=== PATIENT | female | born 1955 | race Caucasian/White ===

== ENCOUNTER 2021-05-08 15:58 | Emergency (ER) | payer OTHER ==
[~2021-05-08 15:58] MED LIST: ANAPROX DS550 MG PO; [UNRECOGNIZED DRUG - REMARK]
[2021-05-08 16:22] LABS: BASO % 0.3 % (0.0-1.0); EOS % 0.3 % (1.0-4.0); HEMATOCRIT 38.2 % (37.0-47.0); LYMPH # 3.3 10*3/uL (1.3-4.4); LYMPH % 27.1 % (27.0-41.0); MEAN CELL VOLUME 88.2 fl (81.0-99.0); MEAN PLATELET VOLUME 9.7 fl (9.6-12.3); MONO # 0.7 10*3/uL (0.1-1.0); MONO % 5.3 % (3.0-9.0); NEUT # 8.2 10*3/uL (2.3-7.9); NEUT % 66.8 % (47.0-73.0); PLATELET COUNT AUTOMATED 221 10*3/uL (130-400); RED BLOOD COUNT 4.33 10*6/uL (4.10-5.10); RED CELL DISTRI WIDTH 12.9 % (0-14.5); WHITE BLOOD COUNT 12.3 10*3/uL (4.8-10.8)
[2021-05-08 16:37] LABS: ALBUMIN 4.1 gm/dl (3.1-4.5); CREATININE 1.18 mg/dL (0.55-1.02); POTASSIUM 3.8 mmol/L (3.5-5.1)
[2021-05-08 21:30] LABS: URINE AMPHETAMINES < 1000 (1000ng/ml); URINE BARBITURATES < 200 (200ng/ml); URINE BENZODIAZEPINES < 200 (200ng/ml); URINE CANNABINOIDS (THC) < 50 (50ng/ml); URINE COCAINE < 300 (300ng/ml); URINE METHADONE < 300 (300ng/ml); URINE OPIATES < 300 (300ng/ml)
[2021-05-08 21:36] LABS: URINE PHENCYCLIDINE < 25 (25ng/ml)
== END 2021-05-09 03:34 | disposition home or self-care (01) ==
LOC: ED 15:58
PROVIDERS: Family Medicine
DX: S01.01XA Laceration without foreign body of scalp, initial encounter (principal); F10.929 Alcohol use, unspecified with intoxication, unspecified; Z88.0 Allergy status to penicillin; W18.39XA Other fall on same level, initial encounter; Y93.89 Activity, other specified; Y92.89 Other specified places as the place of occurrence of the external cause; Y99.8 Other external cause status

== ENCOUNTER → 2024-06-21 | Outpatient (CLI) | payer MEDICARE ==
[~2024-06-21] MED LIST changes: +AMLODIPINE10 MG PO; +ASPIR-TRIN325 MG PO; +CLINDAMYCIN HC300 MG PO; +FINACEA50 G1 NAS; +FISH OIL 1,2001 EAC1 PO; +FLOVENT HFA12 GM INH; +HYDR25T PO; +IOHEXOL 300 MG/ML 100 ML VIAL IV ONE; +LISINOPRIL20 MG PO; +MOTRIN800 MG PO; +Motrin,Rufen800 MG PO; +OMEPRAZOLE MAGN20 MG PO; +PRAVASTATIN SOD20 MG PO; +VENTOLIN,PR2 MG/5 ML PO; +VITAMIN D22000 UNIT PO
[2024-06-21 13:43] LABS: BASO % 0.1 % (0.0-1.0); EOS % 0.1 % (1.0-4.0); HEMATOCRIT 30.7 % (37.0-47.0); MEAN CELL VOLUME 85.8 fl (81.0-99.0); MEAN CORPUSCULAR HGB 28.8 pg (27.0-31.0); MEAN CORPUSCULAR HGB CONC 33.6 g/dl (33.0-37.0); MEAN PLATELET VOLUME 9.4 fl (9.6-12.3); MONO # 0.7 10*3/uL (0.1-1.0); MONO % 8.9 % (3.0-9.0); NEUT # 6.4 10*3/uL (2.3-7.9); PLATELET COUNT AUTOMATED 246 10*3/uL (130-400); RED BLOOD COUNT 3.58 10*6/uL (4.10-5.10); RED CELL DISTRI WIDTH 13.9 % (0-14.5); WHITE BLOOD COUNT 8.4 10*3/uL (4.8-10.8)
[2024-06-21 14:06] LABS: POTASSIUM 3.6 mmol/L (3.4-5.1); TOTAL PROTEIN 7.8 gm/dL (6.0-8.0)
[2024-06-21 15:18] LABS: URINE CREATININE RANDOM 379.32 mg/dL
== END | disposition home or self-care (01) ==
LOC: LAB 01:11 → CT 01:11
PROVIDERS: Family Medicine; ATTEND Student in an Organized Health Care Education/Training Program
DX: I25.10 Atherosclerotic heart disease of native coronary artery without angina pectoris (principal); J05.10 Acute epiglottitis without obstruction; J43.9 Emphysema, unspecified; E27.8 Other specified disorders of adrenal gland; E04.2 Nontoxic multinodular goiter